=== PATIENT | female | born 2000 | race Caucasian/White ===

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

== ENCOUNTER 2018-01-23 13:25 | Emergency (ER) | payer MEDICAID ==
[~2018-01-23] VITALS: Ht 175.3 cm; Wt 65.8 kg
[~2018-01-23 13:25] MED LIST: LIDOCAINE VISC100 ML PO
[2018-01-23 14:23] LABS: URINE BLOOD 3+ (Negative); URINE CLARITY CLEAR; URINE COLOR YELLOW; URINE GLUCOSE-RANDOM NEGATIVE (Negative); URINE KETONES TRACE (Negative); URINE LEUKOCYTES 1+ (Negative); URINE NITRITE NEGATIVE (Negative); URINE PROTEIN 2+ (Negative); URINE UROBILINOGEN 0.2 E.U./dl (0.2-1.0)
[2018-01-23 14:25] LABS: ABSOLUTE EOSINOPHILS 0.1 thou/uL (0.0-0.7); ABSOLUTE LYMPHOCYTES 1.4 thou/uL (0.8-5.3); ABSOLUTE MONOCYTES 0.6 thou/uL (0.0-1.2); BASOPHILS 0.3 %; EOSINOPHILS 1.8 %; HEMATOCRIT 38.1 % (37.0-47.0); HEMOGLOBIN 12.6 gm/dL (12.0-15.0); LYMPHOCYTES 19.3 %; MCHC 33.1 g/dL (28.0-37.0); MCV 84.5 fL (80.0-100.0); MONOCYTES 8.4 %; MPV 9.6 fl. (7.2-11.1); NUCLEATED RBCS 0 /100WBC; PLATELET COUNT* 131 thou/uL (150-400); POLYS 70.2 %; RBC 4.51 mil/uL (4.20-5.00); RDW-CV 12.7 % (10.5-14.5); WBC 7.2 thou/uL (4.0-11.0)
[2018-01-23 14:32] LABS: ICTOTEST (BILI CONFIRMATORY) Negative (Negative); URINE BILIRUBIN 1+ (Negative)
[2018-01-23 14:36] LABS: BACTERIA 1-9 Few /HPF (None Seen); CASTS None Seen /LPF (None Seen); SQUAMOUS 4-10 Moderate /LPF (0-3); URINE RBC 0-2 Rare /HPF (0-2); URINE WBC 0-5 Rare /HPF (0-5)
[2018-01-23 14:37] LABS: CRYSTALS None Seen /LPF (None Seen)
[2018-01-23 15:19] LABS: POTASSIUM 4.2 mmol/L (3.5-5.1)
[2018-01-23 15:23] LABS: ALBUMIN 3.8 g/dL (3.4-5.0); TOTAL BILIRUBIN 0.3 mg/dL (<0.1-1.0); TOTAL PROTEIN 8.1 g/dL (6.4-8.2)
[2018-01-23] MEDS ORDERED: AUGMENTIN 875-1 EACH PO (16:22)
[2018-01-23] MEDS ORDERED: NABUMETONE 750750 M1 PO (16:22)
[2018-01-23] MEDS ORDERED: ONDANSETRON HCL4 M2 PO (16:22)
[2018-01-23 16:41] VITALS: BP 101/47
== END 2018-01-23 16:43 | disposition home or self-care (01) ==
LOC: M.ERS 13:25
PROVIDERS: Nurse Practitioner Family
DX: R59.0 Localized enlarged lymph nodes (principal); N39.0 Urinary tract infection, site not specified; Z91.010 Allergy to peanuts

== ENCOUNTER → 2018-02-09 | Outpatient (CLI) | payer OTHER ==
[~2018-02-09] MED LIST changes: +AUGMENTIN 875-1 EACH PO; +NABUMETONE 750750 M1 PO; +ONDANSETRON HCL4 M2 PO
== END ==
LOC: M.ULTRA 10:00
DX: R19.09 Other intra-abdominal and pelvic swelling, mass and lump (principal)